=== PATIENT | female | born 1985 | race Caucasian/White ===

== ENCOUNTER → 2016-08-25 | Outpatient (CLI) | payer BC, MEDICAID ==
[~2016-08-25] MED LIST: MOTRIN800 MG PO; PERCOCET 5-3251 EACH PO; PRENATAL 1+1)(P1 TAB PO; TUMS200 MG
== END | disposition disaster alternative care site (69) ==
LOC: GLAB 07:18
DX: Z36 Encounter for antenatal screening of mother (principal)

== ENCOUNTER 2016-11-15 05:58 | Inpatient (IN) | payer BC, MEDICAID ==
[~2016-11-15] VITALS: Ht 182.9 cm; Wt 110.8 kg
--- NOTE | ~2016-11-15 | OR ---
PATIENT'S NAME: MONSE BARRAZA [facility] AGE: 30 Y [address] ROOM: [place] [address] LOCATION: [facility] ADMIT DATE: 11/15/2016 OR/Procedure Report DISCHARGE DATE: FAMILY PHYSICIAN: PHYSICIAN, NO ATTENDING PHYSICIAN: Bradford Leal SURGEON: Bradford Leal MD HAIR WORKER: Christian Herrera, student PA. DATE OF PROCEDURE: 11/15/2016 PREOPERATIVE DIAGNOSIS: Prior section at term. POSTOPERATIVE DIAGNOSIS: Prior section at term. PROCEDURE PERFORMED: Repeat low transverse section. ANESTHESIA: Spinal. ESTIMATED BLOOD LOSS: 500 mL. CLINICAL INDICATION: Monse Barraza is a 30-year-old , white female, 3, para 2, at term, having had a prior section and necessitating a repeat section. FINDINGS: Delivery of viable pounds 6 ounce female infant with Apgars of 8 at one minute and 9 at five minutes. umbilical and arterial cord blood gas pending at the time of dictation. TECHNICAL PROCEDURE: The patient was taken to the Operating Room, given spinal anesthesia with good results, and placed in a supine position with a right hip roll and prepped and draped in the usual fashion. A Pfannenstiel skin incision was made with scalpel. Prior fascial scar was excised sharply. Subcutaneous tissue was dissected sharply and a fascial incision was performed sharply. The rectus muscles and peritoneum were incised vertically in the midline. A bladder flap was created. Myometrium was incised with a scalpel. Endometrial cavity was entered bluntly. Uterine incision was carried out bluntly. At this point in time, there was a rapid and easy delivery of viable pounds 6 ounce female in a vertex presentation. The umbilical cord was doubly clamped and the intervening segment was cut. The was handed off to the awaiting Nursing Services. umbilical, arterial cord blood, and venous cord blood were obtained for blood gas analysis and routine studies respectively. Placenta was delivered manually intact with 3 vessels. Exploration of the uterine cavity noted no residual placental or amniotic membranes. WOUND CLOSURE: Uterine incision was closed with a running continually locking PATIENT'S NAME: MONSE BARRAZA [facility] AGE: 30 Y [address] ROOM: [address] [address] LOCATION: [facility] ADMIT DATE: 11/15/2016 OR/Procedure Report DISCHARGE DATE: FAMILY PHYSICIAN: PHYSICIAN, ION ATTENDING PHYSICIAN: Bradofrd Leal stitch of 0 chromic suture, followed by a second imbricating layer of running continuous stitch of 0 chromic suture. Good hemostasis was obtained. Bladder flap was closed with a running continuous stitch of 2-0 Vicryl suture. The abdomen was inspected. Any blood or blood clots were retrieved. Tubes and ovaries were normal bilaterally. Abdominal peritoneum was closed with a running continuous stitch of 2-0 Vicryl suture. The vaginal incision was closed with two running continuous stitches of 0 Vicryl suture tied in the midline. Subcutaneous tissue was reapproximated using a running continuous stitch of 2-0 Vicryl suture. The skin was closed with a running continuous subcuticular stitch of 4-0 Vicryl suture. COUNT RESULTS: Sponge, needle, and instrument counts were correct. POSTOPERATIVE CONDITION: The patient tolerated the procedure well, and was taken to the Recovery Room in good condition. MD FLORENTINO COFFEY/martinez /[id number] d: 11/15/162 t: 11/20/16 1734, OPERATIVE SUMMARY
--- NOTE | ~2016-11-15 | DS ---
PATIENT'S NAME: DANIA BARRAZA [facility] AGE: 30 Y [address] ROOM: [place] [address] LOCATION: [facility] ADMIT DATE: 11/15/2016 Discharge Summary DISCHARGE DATE: 11/18/2016 FAMILY PHYSICIAN: ATTENDING PHYSICIAN: Bradford Leal FINAL/DISCHARGE DIAGNOSIS: Prior section at term. PROCEDURE PERFORMED: On 11/07/2014, repeat low transverse section. ANESTHESIA: Spinal. LABORATORY STUDIES: The patient's discharge hemoglobin and hematocrit were 10.1 and 30.2 respectively, white blood count was 6.9. umbilical arterial cord blood gas revealed a pH of 7.29. HOSPITAL COURSE: The patient was admitted to [facility] on 11/15/2016 whereupon she was taken to the operating room. She underwent a delivery, uncomplicated. She had an uncomplicated postoperative course. On 11/11, [place] was discontinued on postoperative day #1 without incident and initially kept n.p.o. and quickly advanced to regular diet. On 11/18/2016 (postoperative day #3), the patient was having normal urine and bowel function and was ambulating well with good pain control, and subsequently discharged in good condition. DISCHARGE MEDICATIONS: 1. Motrin. 2. Percocet. 3. She is to resume her outpatient regimen. DISCHARGE INSTRUCTIONS: She is to return to see Dr. Leal in 2 weeks for postoperative check. MD LFORENTINO COFFEY/martinez /[id number] d: 11/20/16 2258 t: 12/01/16 0822, DISCHARGE SUMMARY
[~2016-11-15 05:58] MED LIST changes: -MOTRIN800 MG PO; -PERCOCET 5-3251 EACH PO; -TUMS200 MG
[2016-11-15 06:49] LABS: BASOPHIL % 0.2 %; EOSINOPHIL # 0.1 K/uL (0.0-0.5); HEMATOCRIT 35.2 % (33.0-46.0); IMMATURE GRANULOCYTE # 0.1 K/uL (0.0-0.3); IMMATURE GRANULOCYTE % 0.8 %; LYMPHOCYTE # 1.6 K/uL (0.8-4.0); MCH 30.4 pg (27.0-34.0); MCHC 34.1 gm/dL (32.0-36.5); MCV 89.1 fl (83.0-98.0); MONOCYTE # 0.4 K/uL (0.0-1.0); MONOCYTE % 6.1 %; MPV 9.9 fl (9.4-12.4); NEUTROPHIL # (ANC) 4.1 K/uL (1.8-7.8); NEUTROPHIL % 65.9 %; NRBC % 0 /100WBC (0-0.00); PLATELET COUNT 202 K/uL (150-450); RBC 3.95 M/uL (3.50-5.50); RDW-CV 13.2 % (11.9-14.6); WBC 6.3 K/uL (4.0-11.0)
[2016-11-15] MEDS ORDERED: TUMS200 MG (07:54)
[2016-11-15 08:26] LABS: PCO2 64 mmHg (35-45)
[2016-11-15 08:27] LABS: BICARBONATE 28.6 mmol/L (18.0-23.0); PO2 16 mmHg (80-90)
[2016-11-16 06:17] LABS: BASOPHIL % 0.1 %; EOSINOPHIL # 0.1 K/uL (0.0-0.5); EOSINOPHIL % 0.9 %; HEMATOCRIT 30.2 % (33.0-46.0); HEMOGLOBIN 10.1 g/dL (11.0-15.0); IMMATURE GRANULOCYTE % 0.6 %; LYMPHOCYTE # 1.3 K/uL (0.8-4.0); LYMPHOCYTE % 18.2 %; MCH 30.1 pg (27.0-34.0); MCHC 33.4 gm/dL (32.0-36.5); MCV 90.1 fl (83.0-98.0); MONOCYTE # 0.3 K/uL (0.0-1.0); MONOCYTE % 4.4 %; MPV 9.5 fl (9.4-12.4); NEUTROPHIL # (ANC) 5.2 K/uL (1.8-7.8); NEUTROPHIL % 75.8 %; NRBC % 0 /100WBC (0-0.00); PLATELET COUNT 164 K/uL (150-450); RBC 3.35 M/uL (3.50-5.50); RDW-CV 13.4 % (11.9-14.6); WBC 6.9 K/uL (4.0-11.0)
[2016-11-18] MEDS ORDERED: PERCOCET 5-3251 EACH PO (11:04)
[2016-11-18] MEDS ORDERED: MOTRIN800 MG PO (11:04)
== END 2016-11-18 08:08 | disposition disaster alternative care site (69) | DRG 766 ==
LOC: GOBS 05:58 → G2NOB 07:00 → GOBS 11-16 16:12
PROVIDERS: ADMIT Obstetrics & Gynecology
PROC: 10D00Z1 Extraction of Products of Conception, Low, Open Approach (ICD-10-PCS; principal; 2016-11-15)
DX: O34.219 Maternal care for unspecified type scar from previous cesarean delivery (principal); O24.429 Gestational diabetes mellitus in childbirth, unspecified control; Z3A.40 40 weeks gestation of pregnancy; Z37.0 Single live birth
CPT/HCPCS: J0295; J1885; J2001; J2270; J3010; J7120